=== PATIENT | male | born 1985 | race Caucasian/White ===

== ENCOUNTER 2024-03-23 12:05 | Emergency (ER) | payer SELFPAY ==
[~2024-03-23] VITALS: Ht 177.8 cm; Wt 99.8 kg
[2024-03-23 12:09] VITALS: TEMP 98.6
[2024-03-23 12:58] LABS: BASOPHILS % 0.4 % (0.0-1.0); EOSINOPHILS # (AUTO) 0.3 (0.0-0.4); EOSINOPHILS % 2.9 % (0.0-6.0); HEMATOCRIT 46.1 % (38.2-49.6); LYMPHOCYTES # (AUTO) 3.7 (1.0-3.2); LYMPHOCYTES % 38.4 % (18.0-39.1); MEAN CORPUSCULAR HEMOGLOBIN 31.6 pg (28-32); MEAN CORPUSCULAR HGB CONC 34.7 g/dL (31-35); MEAN CORPUSCULAR VOLUME 90.9 fL (81-99); MONOCYTES # (AUTO) 0.6 (0.2-0.8); MONOCYTES % 6.6 % (4.4-11.3); NEUTROPHILS % 51.5 % (38.7-80.0); PLATELET COUNT 305 x10e3/uL (140-360); RED BLOOD COUNT 5.07 x10e6/uL (4.3-5.7); RED CELL DISTRIBUTION WIDTH 12.2 % (11.7-14.4); WHITE BLOOD COUNT 9.67 x10e3/uL (4.8-10.8)
[2024-03-23] MEDS: TRAMADOL HCL 50 MG TAB PO ONE (13:09)
[2024-03-23 13:20] LABS: ALANINE AMINOTRANSFERASE 18 IU/L (0-55); ALBUMIN 4.4 g/dL (3.5-5.0); ALBUMIN/GLOBULIN RATIO 1.5 (0.8-2.0); ALKALINE PHOSPHATASE 59 IU/L (40-150); ANION GAP 12.8 mmol/L (8-16); BILIRUBIN,TOTAL 0.7 mg/dL (0.2-1.2); BLOOD UREA NITROGEN < 5 mg/dL (7-26); CALCIUM 9.6 mg/dL (8.4-10.2); CARBON DIOXIDE 22 mmol/L (22-29); CHLORIDE 105 mmol/L (98-107); CREATININE, SERUM 0.81 mg/dL (0.72-1.25); EST GLOMERULAR FILTRATION RATE 117 ML/MIN (>=60); GLUCOSE 100 mg/dL (74-118); POTASSIUM 3.8 mmol/L (3.5-5.1); SODIUM 136 mmol/L (136-145); TOTAL PROTEIN 7.3 g/dL (6.5-8.1)
[2024-03-23 13:23] LABS: BUN/CREATININE RATIO 6 (6-25)
[2024-03-23 13:29] LABS: TROPONIN I < 0.001 ng/mL (0-0.300)
[2024-03-23] MEDS ORDERED: NAPROXEN250 MG PO (13:59)
[2024-03-23 14:16] VITALS: PULSE 45; RESP 19; O2SAT 98
== END 2024-03-23 14:30 | disposition home or self-care (01) ==
LOC: ER 12:09
DX: R55 Syncope and collapse (principal); R00.1 Bradycardia, unspecified; F43.10 Post-traumatic stress disorder, unspecified; Z85.6 Personal history of leukemia; F17.210 Nicotine dependence, cigarettes, uncomplicated
CPT/HCPCS: 36415; 80053; 83880; 84484; 85025; 93005; 99284